=== PATIENT | male | born 1960 | race Native Hawaiian/Other Pacific Islander ===

== ENCOUNTER 2017-04-02 09:42 | Emergency (ER) | payer OTHER ==
[~2017-04-02] VITALS: Ht 177.8 cm; Wt 106.6 kg
[~2017-04-02 09:42] MED LIST: AMLO5TAB PO; BISOPROL FUM10 MG PO; HYDROCHLOROT12.5 M1 PO; ZESTRIL40 MG PO
[2017-04-02 10:57] VITALS: BP 144/84; TEMP 98
== END 2017-04-02 10:57 | disposition home or self-care (01) ==
LOC: ED 09:42
DX: R21 Rash and other nonspecific skin eruption (principal)
CPT/HCPCS: 86618; 99282

== ENCOUNTER 2017-04-09 00:24 | Emergency (ER) | payer OTHER ==
[~2017-04-09] VITALS: Ht 182.9 cm; Wt 116.6 kg
[2017-04-09 01:04] VITALS: BP 129/75; TEMP 97.7
== END 2017-04-09 01:05 | disposition home or self-care (01) ==
LOC: ED 00:24
DX: M79.605 Pain in left leg (principal); L88 Pyoderma gangrenosum
CPT/HCPCS: 96372; 99282; J1100

== ENCOUNTER 2018-02-17 11:52 | Emergency (ER) | payer OTHER ==
[~2018-02-17] VITALS: Ht 185.4 cm; Wt 113.4 kg
[2018-02-17 12:00] VITALS: TEMP 98
[2018-02-17 13:15] VITALS: BP 154/84
== END 2018-02-17 13:15 | disposition home or self-care (01) ==
LOC: ED 11:52
PROC: 0HQFXZZ Repair Right Hand Skin, External Approach (ICD-10-PCS; principal; 2018-02-17)
DX: S61.210A Laceration without foreign body of right index finger without damage to nail, initial encounter (principal); S61.212A Laceration without foreign body of right middle finger without damage to nail, initial encounter; W22.8XXA Striking against or struck by other objects, initial encounter; Y93.89 Activity, other specified; Y92.89 Other specified places as the place of occurrence of the external cause
CPT/HCPCS: 99283

== ENCOUNTER 2018-03-07 15:24 | Emergency (ER) | payer OTHER ==
[~2018-03-07] VITALS: Ht 185.4 cm; Wt 113.4 kg
[2018-03-07 16:36] LABS: PLATELET COUNT 371 K/uL (142-355)
[2018-03-07 16:53] LABS: POTASSIUM 3.4 mmol/L (3.6-5.2)
[2018-03-07 17:01] LABS: PARTIAL THROMBOPLASTIN TIME 27.7 SECONDS (24.5-33.6)
[2018-03-07 20:55] VITALS: BP 141/87; TEMP 98
== END 2018-03-07 20:55 | disposition short-term general hospital (02) ==
LOC: ED 15:24
PROVIDERS: Emergency Medicine
DX: I63.9 Cerebral infarction, unspecified (principal)
CPT/HCPCS: 36415; 80053; 85027; 85610; 85730; 93005; 99283

== ENCOUNTER 2018-03-07 21:06 | Outpatient (CLI) | payer OTHER | END 2018-03-07 22:10 | disposition short-term general hospital (02) | LOC: AMB 21:06 | DX: I63.9 Cerebral infarction, unspecified (principal) | CPT/HCPCS: A0425; A0427 ==

== ENCOUNTER 2018-04-03 22:11 | Emergency (ER) | payer OTHER ==
[~2018-04-03] VITALS: Ht 185.4 cm; Wt 113.4 kg
[2018-04-04 00:34] VITALS: BP 181/97; TEMP 98.5
== END 2018-04-04 00:35 | disposition home or self-care (01) ==
LOC: ED 22:11
DX: M54.2 Cervicalgia (principal); M62.838 Other muscle spasm; I63.89 Other cerebral infarction; G83.14 Monoplegia of lower limb affecting left nondominant side
CPT/HCPCS: 96372; 99283; J1885

== ENCOUNTER 2018-09-19 16:11 | Outpatient (CLI) | payer OTHER | END 2018-09-19 16:17 | disposition short-term general hospital (02) | LOC: AMB 16:11 | DX: M54.89 Other dorsalgia (principal); M79.603 Pain in arm, unspecified; M79.606 Pain in leg, unspecified | CPT/HCPCS: A0425; A0427 ==

== ENCOUNTER 2018-09-19 16:21 | Emergency (ER) | payer OTHER ==
[~2018-09-19] VITALS: Ht 185.4 cm; Wt 113.4 kg
[2018-09-19 16:27] VITALS: BP 157/93
[2018-09-19 16:46] LABS: PLATELET COUNT 327 K/uL (142-355)
[2018-09-19 16:54] LABS: POTASSIUM 3.6 mmol/L (3.6-5.2)
== END 2018-09-19 17:41 | disposition home or self-care (01) ==
LOC: ED 16:21
PROVIDERS: Emergency Medicine
DX: M54.16 Radiculopathy, lumbar region (principal)
CPT/HCPCS: 80053; 85027; 93005; 96372; 99283; J2175

== ENCOUNTER 2019-02-26 18:30 | Emergency (ER) | payer OTHER ==
[~2019-02-26] VITALS: Ht 185.4 cm; Wt 117.9 kg
[2019-02-26 20:02] LABS: PLATELET COUNT 335 K/uL (142-355)
[2019-02-26 20:10] LABS: POTASSIUM 3.5 mmol/L (3.6-5.2)
[2019-02-26 20:35] LABS: PARTIAL THROMBOPLASTIN TIME 26.2 SECONDS (24.5-33.6)
[2019-02-26 22:22] VITALS: BP 170/110; TEMP 100
== END 2019-02-26 22:30 | disposition home or self-care (01) ==
LOC: ED 18:30
PROVIDERS: Family Medicine
PROC: 2Y41X5Z Packing of Nasal Region using Packing Material (ICD-10-PCS; principal; 2019-02-26)
DX: R04.0 Epistaxis (principal); I10 Essential (primary) hypertension
CPT/HCPCS: 80053; 85027; 85610; 85730; 96374; 99284; J1940

== ENCOUNTER 2019-02-28 11:57 | Emergency (ER) | payer OTHER ==
[~2019-02-28] VITALS: Ht 185.4 cm; Wt 122.7 kg
[2019-02-28 12:45] VITALS: BP 176/97; TEMP 97.8
== END 2019-02-28 12:45 | disposition home or self-care (01) ==
LOC: ED 11:57
PROC: 2Y51X5Z Removal of Nasal Packing Material (ICD-10-PCS; principal; 2019-02-28)
DX: R04.0 Epistaxis (principal)

== ENCOUNTER 2019-03-01 16:38 | Emergency (ER) | payer OTHER ==
[~2019-03-01] VITALS: Ht 185.4 cm; Wt 122.5 kg
[2019-03-01 21:15] VITALS: BP 166/93; TEMP 98.2
== END 2019-03-01 21:15 | disposition home or self-care (01) ==
LOC: ED 16:38
DX: I10 Essential (primary) hypertension (principal); R04.0 Epistaxis
CPT/HCPCS: 99282; 99283

== ENCOUNTER 2021-03-13 16:38 | Emergency (ER) | payer OTHER ==
[~2021-03-13] VITALS: Ht 185.4 cm; Wt 134.3 kg
[2021-03-13 17:25] LABS: PLATELET COUNT 407 K/uL (142-355)
[2021-03-13 17:30] LABS: POTASSIUM 3.9 mmol/L (3.6-5.2)
[2021-03-13 20:00] VITALS: BP 129/86; TEMP 97.9
== END 2021-03-13 20:20 | disposition home or self-care (01) ==
LOC: ED 16:38
PROVIDERS: Family Medicine
DX: K52.89 Other specified noninfective gastroenteritis and colitis (principal); N30.91 Cystitis, unspecified with hematuria; Z20.822 Contact with and (suspected) exposure to COVID-19
CPT/HCPCS: 36415; 80053; 81000; 82150; 83690; 85027; 87635; 96365; 99284; U0003

== ENCOUNTER 2021-08-25 12:58 | Emergency (ER) | payer OTHER ==
[~2021-08-25] VITALS: Ht 185.4 cm; Wt 145.6 kg
[2021-08-25 13:01] VITALS: TEMP 97.8
[2021-08-25 14:58] VITALS: BP 132/66
== END 2021-08-25 14:58 | disposition home or self-care (01) ==
LOC: ED 12:58
PROC: 2W3MX1Z Immobilization of Left Lower Extremity using Splint (ICD-10-PCS; principal; 2021-08-25)
DX: S80.02XA Contusion of left knee, initial encounter (principal); M79.662 Pain in left lower leg; W18.39XA Other fall on same level, initial encounter; Y92.89 Other specified places as the place of occurrence of the external cause
CPT/HCPCS: 99283

== ENCOUNTER 2021-10-05 14:57 | Emergency (ER) | payer OTHER ==
[~2021-10-05] VITALS: Ht 185.4 cm; Wt 145.6 kg
[2021-10-05 15:40] LABS: POTASSIUM 4.1 mmol/L (3.6-5.2)
[2021-10-05 15:42] LABS: PLATELET COUNT 262 K/uL (142-355)
[2021-10-05 16:01] LABS: PARTIAL THROMBOPLASTIN TIME 23.9 SECONDS (24.5-33.6)
[2021-10-05 16:13] VITALS: BP 156/85; TEMP 98.2
== END 2021-10-05 16:19 | disposition home or self-care (01) ==
LOC: ED 14:57
PROVIDERS: Emergency Medicine
DX: R55 Syncope and collapse (principal); I69.854 Hemiplegia and hemiparesis following other cerebrovascular disease affecting left non-dominant side; I10 Essential (primary) hypertension; R06.02 Shortness of breath; X50.9XXA Other and unspecified overexertion or strenuous movements or postures, initial encounter; Y92.89 Other specified places as the place of occurrence of the external cause
CPT/HCPCS: 36415; 80053; 83880; 84484; 85027; 85379; 85610; 85730; 93005; 99284; J0360

== ENCOUNTER 2022-01-04 11:23 | Emergency (ER) | payer OTHER ==
[~2022-01-04] VITALS: Ht 185.4 cm; Wt 149.7 kg
[2022-01-04 11:27] VITALS: BP 165/82; TEMP 98
[2022-01-04 11:53] LABS: PLATELET COUNT 343 K/uL (142-355)
[2022-01-04 11:59] LABS: POTASSIUM 3.6 mmol/L (3.6-5.2)
[2022-01-04 13:22] LABS: PARTIAL THROMBOPLASTIN TIME 25.6 SECONDS (24.5-33.6)
== END 2022-01-04 14:53 | disposition home or self-care (01) ==
LOC: ED 11:23
PROVIDERS: Emergency Medicine
PROC: 2W3DX1Z Immobilization of Left Lower Arm using Splint (ICD-10-PCS; principal; 2022-01-04)
DX: S52.592A Other fractures of lower end of left radius, initial encounter for closed fracture (principal); S20.212A Contusion of left front wall of thorax, initial encounter; N28.9 Disorder of kidney and ureter, unspecified; R06.02 Shortness of breath; W17.89XA Other fall from one level to another, initial encounter; Y92.89 Other specified places as the place of occurrence of the external cause
CPT/HCPCS: 80053; 83880; 84484; 85027; 85379; 85610; 85730; 99284; Q9963